=== PATIENT | female | born 1950 | race African-American/Black ===

== ENCOUNTER 2018-10-30 14:47 | Inpatient (IN) | payer MEDICARE, MEDICAID ==
[~2018-10-30] VITALS: Ht 160 cm; Wt 96.6 kg
[2018-10-30] MEDS ORDERED: SODIUM CHLORIDE 0.9% 500 ML IVB ONE (14:57)
[2018-10-30] MEDS ORDERED: ONDANSETRON HCL 4 MG/2 ML VIAL IV ONE (15:00)
[2018-10-30] MEDS ORDERED: MORPHINE SULFATE 4 MG/ML SYR/VIAL IV ONE (15:00)
[2018-10-30 16:09] LABS: Basophils # (auto) 0 uL; Basophils % (auto) 0.5 % (0.0-2.0); Eosinophils # (auto) 0.3 uL; Eosinophils % (auto) 3.1 % (0.0-7.0); Hemoglobin 12.7 g/dL (12.2-16.2); Lymphocytes # (auto) 4.7 uL; Mean Corpuscular Hemoglobin 28.4 pg (28.0-32.0); Mean Corpuscular Hgb Conc. 33.4 g/dL (32.0-36.0); Mean Corpuscular Volume 84.9 fL (80.0-100.0); Monocytes # (auto) 0.5 uL; Monocytes % (auto) 5.7 % (0.0-12.0); Neutrophils # (auto) 3.5 uL; Neutrophils % (auto) 38.7 % (37.0-80.0); Nucleated Red Blood Cells % 0.2 %; Platelet Count (auto) 191 10^3/uL (140-450); Red Blood Cells 4.48 10^6/uL (4.0-5.20); Red Cell Distribution Width 15.1 % (11.8-14.3); White Blood Cell 9.1 10^3/uL (4.4-10.8)
[2018-10-30 16:17] LABS: Calcium 8.9 mg/dL (8.5-10.1); Magnesium 2.6 mg/dL (1.6-2.6); Potassium 3.2 mmol/L (3.5-5.1)
[2018-10-30 16:24] LABS: Albumin 3.7 g/dL (3.4-5.0); BUN/Creatinine Ratio 8.3; Bilirubin, Total 0.4 mg/dL (0.2-1.0); Total Protein 8.3 g/dL (6.4-8.2)
[2018-10-31 03:53] LABS: Urine Bacteria FEW /hpf (None Seen); Urine Blood Negative /uL (Negative); Urine Hyaline Cast FEW /lpf (0 - 2); Urine Mucus FEW (None Seen); Urine Specific Gravity 1.025 (1.001-1.035); Urine WBC 1 /hpf (0 - 5)
[2018-10-31] MEDS ORDERED: ONDANSETRON HCL 4 MG/2 ML VIAL IV PRN (04:30)
[2018-10-31] MEDS ORDERED: ACETAMINOPHEN 500 MG TAB PO PRN (04:30)
[2018-10-31] MEDS ORDERED: POTASSIUM CHL 20 Meq TABLET PO ONE ×3 (04:30→17:00)
[2018-10-31 05:59] LABS: Basophils # (auto) 0.1 uL; Basophils % (auto) 0.9 % (0.0-2.0); Eosinophils # (auto) 0.3 uL; Eosinophils % (auto) 3.3 % (0.0-7.0); Hematocrit 36.1 % (36.0-46.0); Hemoglobin 11.7 g/dL (12.2-16.2); Lymphocytes # (auto) 4.6 uL; Lymphocytes % (auto) 48.7 % (10.0-50.0); Mean Corpuscular Hemoglobin 28.2 pg (28.0-32.0); Mean Corpuscular Hgb Conc. 32.5 g/dL (32.0-36.0); Mean Corpuscular Volume 86.9 fL (80.0-100.0); Monocytes # (auto) 0.5 uL; Monocytes % (auto) 5.7 % (0.0-12.0); Neutrophils # (auto) 3.9 uL; Neutrophils % (auto) 41.4 % (37.0-80.0); Nucleated Red Blood Cells % 0.2 %; Platelet Count (auto) 163 10^3/uL (140-450); Red Blood Cells 4.15 10^6/uL (4.0-5.20); Red Cell Distribution Width 15.2 % (11.8-14.3); White Blood Cell 9.4 10^3/uL (4.4-10.8)
[2018-10-31 06:05] LABS: Anion Gap 7 (5-15); BUN/Creatinine Ratio 9.7; Blood Urea Nitrogen 11 mg/dL (7-18); Calcium 7.8 mg/dL (8.5-10.1); Carbon Dioxide 26 mmol/L (21-32); Chloride 106 mmol/L (98-107); GFR African American 62 mL/min; GFR Non-African American 51 mL/min; Glucose 79 mg/dL (74-106); Potassium 3.1 mmol/L (3.5-5.1); Sodium 139 mmol/L (136-145)
[2018-10-31] MEDS ORDERED: PANTOPRAZOLE 40 MG/10 ML VIAL IV SCH (10:00)
[2018-10-31] MEDS: MORPHINE SULFATE 4 MG/ML SYR/VIAL IV PRN ×2 (10:25→20:07)
[2018-10-31] MEDS ORDERED: cefTRIAXone 1GM/50ML D5W 50 ML IV ONE (13:15)
[2018-10-31] MEDS ORDERED: cloNIDine HCL 0.1 MG TAB PO PRN (13:15)
[2018-10-31] MEDS ORDERED: LORazepam 2MG/ML-1ML VIAL IV PRN (13:15)
[2018-10-31] MEDS: metroNIDAZOLE 500MG/100ML 100 ML IV SCH ×2 (14:28→22:58)
[2018-10-31 19:47] VITALS: BP 155/79
--- NOTE | 2018-10-31 19:48 | NUR ---
MS admit from ER NIKKI HAMMONDS admitted to tele/MS . Patient oriented to Deysi Cazares RN primary RN, unit, room, bed, and unit policies regarding patient care and visiting hours. Patient weighed by bedscale and encouraged to call if they need something. All questions and concerns addressed, patient verbalized understanding. Note: Family at bedside
[2018-10-31 22:00] VITALS: BP 155/79
[2018-10-31] MEDS: PANTOPRAZOLE 40 MG/10 ML VIAL IV SCH (22:00)
[2018-11-01] VITALS (8 sets, daily range): BP systolic 149–189; BP diastolic 64–101
[2018-11-01] MEDS: MORPHINE SULFATE 4 MG/ML SYR/VIAL IV PRN ×2 (00:59→16:22)
[2018-11-01] MEDS: metroNIDAZOLE 500MG/100ML 100 ML IV SCH ×3 (05:41→23:03)
[2018-11-01 06:26] LABS: Basophils # (auto) 0 uL; Basophils % (auto) 0.6 % (0.0-2.0); Eosinophils # (auto) 0.3 uL; Eosinophils % (auto) 4.3 % (0.0-7.0); Hematocrit 35.5 % (36.0-46.0); Hemoglobin 11.5 g/dL (12.2-16.2); Lymphocytes # (auto) 3.5 uL; Lymphocytes % (auto) 46.5 % (10.0-50.0); Mean Corpuscular Hemoglobin 27.9 pg (28.0-32.0); Mean Corpuscular Hgb Conc. 32.4 g/dL (32.0-36.0); Mean Corpuscular Volume 86.1 fL (80.0-100.0); Monocytes # (auto) 0.5 uL; Monocytes % (auto) 6.1 % (0.0-12.0); Neutrophils # (auto) 3.2 uL; Neutrophils % (auto) 42.5 % (37.0-80.0); Nucleated Red Blood Cells % 0.1 %; Platelet Count (auto) 181 10^3/uL (140-450); Red Blood Cells 4.12 10^6/uL (4.0-5.20); Red Cell Distribution Width 15.4 % (11.8-14.3); White Blood Cell 7.6 10^3/uL (4.4-10.8)
[2018-11-01 06:51] LABS: Calcium 7.8 mg/dL (8.5-10.1); Potassium 4.1 mmol/L (3.5-5.1)
[2018-11-01 06:54] LABS: BUN/Creatinine Ratio 7.7
--- NOTE | 2018-11-01 07:50 | NUR ---
Opening Shift Note Assumed care of patient, awake and alert. No S/S of distress/SOB or pain. NPO prior stress test. Instructed on POC and to call for assist PRN, will continue to monitor for changes Q1hr and PRN.
[2018-11-01] MEDS ORDERED: ADENOSINE 80 MG in GIVE UN-DILUTED 0 ML IV STA (08:35)
--- NOTE | 2018-11-01 10:00 | NUR ---
PT OFF UNIT FOR STRESS TEST. NO ACUTE DISTRESS NOTED AT DEPARTURE.
[2018-11-01] MEDS: POTASSIUM CHL 20 Meq TABLET PO SCH (11:47)
[2018-11-01] MEDS: cefTRIAXone 1GM/50ML D5W 50 ML IV SCH (11:47)
[2018-11-01] MEDS: HYDROcodone-ACET 5/325MG TAB PO PRN (12:00)
--- NOTE | 2018-11-01 12:00 | NUR ---
PT BACK FROM STRESS TEST, REPORTED DOES NOT WANT ANY MORE TEST OR PROCEDURE FOR TODAY. DR. CARL AND DRUM BARKER OPERATOR RIMA WATERS NOTIFIED. BOTH MDs STATED OK FOR PT TO EAT AT THIS TIME.
[2018-11-01] MEDS ORDERED: LEVOTHYROXINE SODIUM 100 MCG TAB PO ONE (12:15)
--- NOTE | 2018-11-01 12:18 | NUR ---
DR. GONGORA AT BEDSIDE. NEW ORDERS NPO AFTER MIDNIGHT AND CONSENT FOR EGD. WILL CARRY OUT ORDER. Signed: 11/01/18 at 1219 by Mohsen Ding RN RN
[2018-11-01] MEDS: PANTOPRAZOLE 40 MG/10 ML VIAL IV SCH ×2 (12:40→23:03)
[2018-11-01] MEDS ORDERED: cloNIDine HCL 0.1 MG TAB PO PRN (15:00)
--- NOTE | 2018-11-01 15:05 | NUR ---
RECEIVED PHONE CALL FROM DR. MILLS CLONIDINE 0.1MG PO PRN Q2H FOR SYS B/P GREATER THAN 160. ORDER READ BACK AND VERIFIED WILL CARRY OUT ORDER.
--- NOTE | 2018-11-01 19:30 | NUR ---
OPENING NOTES REPORT RECEIVED FROM DAY SHIFT RN. PT IS ALERT AND ORIENTATED X 4 WITH NO S/S OF DISTRESS NOR PAIN. BED IS IN LOWEST POSITION WITH SIDE RAILS UP X 2. BED BRAKES ARE LOCKED AND IN LOWEST POSITION. HOB IS 30 DEGREES. DISCUSSED POC WITH PT, PT VERBALIZED UNDERSTANDING. WILL MONITOR Q 1HR.
--- NOTE | 2018-11-01 19:54 | NUR ---
CARE ENDORSED TO ALEX LO.
[2018-11-02] VITALS (7 sets, daily range): BP systolic 125–155; BP diastolic 67–96
[2018-11-02] MEDS: metroNIDAZOLE 500MG/100ML 100 ML IV SCH (05:52)
[2018-11-02] MEDS: MORPHINE SULFATE 4 MG/ML SYR/VIAL IV PRN ×2 (06:03→15:49)
[2018-11-02] MEDS: LEVOTHYROXINE SODIUM 100 MCG TAB PO SCH (07:00)
--- NOTE | 2018-11-02 07:27 | NUR ---
CLOSING NOTES ENDORSED CARE TO DAY SHIFT RN
[2018-11-02 07:39] LABS: Basophils # (auto) 0.1 uL; Basophils % (auto) 0.7 % (0.0-2.0); Eosinophils # (auto) 0.3 uL; Eosinophils % (auto) 3.6 % (0.0-7.0); Hematocrit 36.2 % (36.0-46.0); Lymphocytes # (auto) 2.9 uL; Lymphocytes % (auto) 39.8 % (10.0-50.0); Mean Corpuscular Hemoglobin 28.6 pg (28.0-32.0); Mean Corpuscular Hgb Conc. 33.2 g/dL (32.0-36.0); Mean Corpuscular Volume 86.2 fL (80.0-100.0); Monocytes # (auto) 0.5 uL; Monocytes % (auto) 6.1 % (0.0-12.0); Neutrophils # (auto) 3.7 uL; Neutrophils % (auto) 49.8 % (37.0-80.0); Nucleated Red Blood Cells % 0.3 %; Platelet Count (auto) 183 10^3/uL (140-450); Red Cell Distribution Width 15.1 % (11.8-14.3); White Blood Cell 7.4 10^3/uL (4.4-10.8)
[2018-11-02 07:50] LABS: BUN/Creatinine Ratio 7.8; Potassium 3.7 mmol/L (3.5-5.1)
[2018-11-02 07:52] LABS: INR 1.03 (0.9-1.15); Partial Thromboplastin Time 31.3 sec (23.78-33.04)
--- NOTE | 2018-11-02 08:41 | NUR ---
PT OFF UNIT TO PREOP FOR EGD VIA BED. NO S/S OF ACUTE DISTRESS NOTED AT DEPARTURE. VS:98.0, 71, 19, 97%, 146/96,0/10.
[2018-11-02] MEDS ORDERED: NALOXONE HCL 0.4 MG/ML VIAL ONE (09:00)
[2018-11-02] MEDS ORDERED: FLUMAZENIL 0.1 MG/ML INJ 10ML MDV IV ONE (09:00)
[2018-11-02] MEDS ORDERED: LIDOCAINE VISCOUS 2% 15ML UD ONE (09:01)
[2018-11-02] MEDS ORDERED: HYDROmorphone HCL 2 MG/ML VL ONE (09:02)
[2018-11-02] MEDS ORDERED: diphenhdrAMINE HCL 50 MG/1 ML VL ONE (09:02)
[2018-11-02] MEDS ORDERED: SODIUM CHLORIDE LOCK 10 ML ONE (09:02)
[2018-11-02] MEDS: fentaNYL CITRATE 100 MCG/2 ML VL ONE ×2 (09:25→09:28)
[2018-11-02] MEDS: MIDAZOLAM HCL 5 MG/ML-1ML VIAL ONE ×2 (09:25→09:28)
--- NOTE | 2018-11-02 10:55 | NUR ---
PT BACK TO ROOM, S/P EGD PT DROWSY BUT AROUSABLE, DENIED OF ANY DISCOMFORT AT THIS TIME. VS: 98.1, 63, 19, 95%, 143/67. WILL CONTINUE CARE.
[2018-11-02] MEDS: POTASSIUM CHL 20 Meq TABLET PO SCH (12:10)
[2018-11-02] MEDS: cefTRIAXone 1GM/50ML D5W 50 ML IV SCH (12:10)
[2018-11-02] MEDS: PANTOPRAZOLE 40 MG TAB PO SCH ×2 (12:10→22:19)
[2018-11-02] MEDS ORDERED: amLODIPine BESYLATE 5 MG TAB PO ONE (13:15)
[2018-11-02] MEDS ORDERED: LISINOPRIL 20 MG TAB PO ONE (13:15)
--- NOTE | 2018-11-02 19:35 | NUR ---
CARE ENDORSED TO RONALDO LO.
--- NOTE | 2018-11-02 19:40 | NUR ---
OPENING NOTES REPORT RECEIVED FROM DAY SHIFT RN. PT IS ALERT AND ORIENTATED X 4 WITH NO S/S OF DISTRESS BUT 6/10 PAIN. BED IS IN LOWEST POSITION WITH SIDE RAILS UP X 2. BED BRAKES ARE LOCKED AND IN LOWEST POSITION. HOB IS 30 DEGREES. DISCUSSED POC WITH PT, PT VERBALIZED UNDERSTANDING. WILL MONITOR Q 1HR.
[2018-11-02] MEDS: HYDROcodone-ACET 5/325MG TAB PO PRN (22:19)
[2018-11-03] MEDS: MORPHINE SULFATE 4 MG/ML SYR/VIAL IV PRN (00:17)
[2018-11-03 05:33] VITALS: BP 132/69
[2018-11-03] MEDS: LEVOTHYROXINE SODIUM 100 MCG TAB PO SCH (06:53)
[2018-11-03 06:54] LABS: Calcium 8.2 mg/dL (8.5-10.1); Potassium 3.6 mmol/L (3.5-5.1)
[2018-11-03 07:06] LABS: BUN/Creatinine Ratio 7.3
[2018-11-03 08:00] VITALS: BP 148/71
[2018-11-03 08:22] VITALS: BP 148/71
[2018-11-03] MEDS: HYDROcodone-ACET 5/325MG TAB PO PRN (09:47)
[2018-11-03] MEDS: amLODIPine BESYLATE 5 MG TAB PO SCH (09:47)
[2018-11-03] MEDS: LISINOPRIL 20 MG TAB PO SCH (09:48)
[2018-11-03] MEDS: PANTOPRAZOLE 40 MG TAB PO SCH ×2 (09:49→21:28)
[2018-11-03] MEDS: ENOXAPARIN SOD 30 MG/0.3 ML SYRINGE SC SCH (09:49)
--- NOTE | 2018-11-03 11:26 | NUR ---
PT TO WALK WITH PT.
[2018-11-03 12:22] VITALS: BP 155/88
--- NOTE | 2018-11-03 14:10 | NUR ---
DR. ELDRIDGE AT BEDSIDE.
--- NOTE | 2018-11-03 14:29 | NUR ---
NUTRITION ASSESSMENT NOTES Please refer to link notes of nutrition screen form filed under the intervention section of the plan of care for further details. Est. Needs: 1450 kcal to 1950 kcal (15-20 kcal/kgBW), 52 gms to 62 gms pro (1.0-1.2 gms/kgIBW: 52 kg). Will continue to monitor pertinent labs and reassess nutrient need prn Thank you. Addendum: 11/03/18 at [address] Amended: Links added.
[2018-11-03 16:19] VITALS: BP 156/81
--- NOTE | 2018-11-03 19:25 | NUR ---
CARE ENDORSED TO ARMANDO LO
--- NOTE | 2018-11-03 19:46 | NUR ---
ASSUMED CARE, PT. AWAKE, NO C/O PAIN, NO SOB.
[2018-11-03 21:30] VITALS: BP 151/71
--- NOTE | 2018-11-03 23:50 | NUR ---
IV INFILTRATED, PT. REFUSED TO INSERT IV AT THIS TIME.
[2018-11-04 04:30] VITALS: BP 110/52
--- NOTE | 2018-11-04 04:52 | NUR ---
pt. still refusing to put an iv.
[2018-11-04] MEDS: LEVOTHYROXINE SODIUM 100 MCG TAB PO SCH (06:03)
[2018-11-04 06:15] LABS: Basophils # (auto) 0.1 uL; Eosinophils # (auto) 0.3 uL; Eosinophils % (auto) 3.2 % (0.0-7.0); Hematocrit 38.3 % (36.0-46.0); Hemoglobin 12.6 g/dL (12.2-16.2); Lymphocytes % (auto) 35.4 % (10.0-50.0); Mean Corpuscular Hemoglobin 28.3 pg (28.0-32.0); Mean Corpuscular Volume 85.7 fL (80.0-100.0); Monocytes # (auto) 0.6 uL; Monocytes % (auto) 6.9 % (0.0-12.0); Neutrophils # (auto) 4.5 uL; Neutrophils % (auto) 53.5 % (37.0-80.0); Nucleated Red Blood Cells % 0.1 %; Platelet Count (auto) 211 10^3/uL (140-450); Red Blood Cells 4.47 10^6/uL (4.0-5.20); Red Cell Distribution Width 15.2 % (11.8-14.3); White Blood Cell 8.3 10^3/uL (4.4-10.8)
[2018-11-04 06:31] LABS: Albumin 3.6 g/dL (3.4-5.0); Calcium 8.7 mg/dL (8.5-10.1); Magnesium 2.5 mg/dL (1.6-2.6); Potassium 3.4 mmol/L (3.5-5.1)
[2018-11-04 06:35] LABS: BUN/Creatinine Ratio 7.7; Bilirubin, Total 0.5 mg/dL (0.2-1.0)
--- NOTE | 2018-11-04 07:50 | NUR ---
Opening Shift Note Assumed care of patient, AAOX4, breathing even unlabored, S1, S2. Patient refused to have a new IV at this time. Abd soft nontender, denied of blood in stools. No S/S of distress/SOB or pain. Instructed on POC and to call for assist PRN, bed locked in the lowest position, call light within easy reach, will continue to monitor for changes Q1hr and PRN.
[2018-11-04 08:00] VITALS: BP 148/63
[2018-11-04 09:12] VITALS: BP 148/63
[2018-11-04] MEDS: amLODIPine BESYLATE 5 MG TAB PO SCH (09:20)
[2018-11-04] MEDS: LISINOPRIL 20 MG TAB PO SCH (09:20)
[2018-11-04] MEDS: PANTOPRAZOLE 40 MG TAB PO SCH (09:20)
[2018-11-04] MEDS: ENOXAPARIN SOD 30 MG/0.3 ML SYRINGE SC SCH (09:21)
--- NOTE | 2018-11-04 11:00 | NUR ---
DR. BAEZ AT BEDSIDE.
[2018-11-04 12:30] VITALS: BP 137/69
[2018-11-04 13:09] VITALS: BP 148/67
[2018-11-04 17:07] VITALS: BP 139/76
--- NOTE | 2018-11-04 17:40 | NUR ---
Discharge instructions given as ordered. Encourage to follow up with [facility] DR. ELDRIDGE on 11/20/18 @ 2:30pm as instructed and F/U with GI Dr. Chatman with in 1-2 week for biopsy result. All questions and concerns addressed. Patient verbalized understanding. Medication reconciliation form completed and copy given to patient. IV removed with catheter intact, pressure dressing applied. Telemetry unit returned to [facility]. Patient taken to vehicle via wheelchair with all personal belongings, accompanied by staff and family member. No distress noted at time of departure.
== END 2018-11-04 17:29 | disposition home or self-care (01) | DRG 241 ==
LOC: ER 14:47 → OVERFLOW 10-31 04:38 → EAST 10-31 19:53 → TELE-EAST 11-01 03:58
PROVIDERS: ADMIT Nurse Practitioner Family; ATTEND Internal Medicine
PROC: 0DB68ZX Excision of Stomach, Via Natural or Artificial Opening Endoscopic, Diagnostic (ICD-10-PCS; principal; 2018-11-02 09:19)
DX: K29.71 Gastritis, unspecified, with bleeding (principal); N17.0 Acute kidney failure with tubular necrosis; N18.3 Chronic kidney disease, stage 3 (moderate); E03.9 Hypothyroidism, unspecified; E87.6 Hypokalemia; I12.9 Hypertensive chronic kidney disease with stage 1 through stage 4 chronic kidney disease, or unspecified chronic kidney disease; E66.9 Obesity, unspecified; M79.7 Fibromyalgia; N39.0 Urinary tract infection, site not specified; K57.30 Diverticulosis of large intestine without perforation or abscess without bleeding; F17.210 Nicotine dependence, cigarettes, uncomplicated; G40.909 Epilepsy, unspecified, not intractable, without status epilepticus; I70.8 Atherosclerosis of other arteries; K59.00 Constipation, unspecified; M54.9 Dorsalgia, unspecified; K76.89 Other specified diseases of liver; M06.9 Rheumatoid arthritis, unspecified; M10.9 Gout, unspecified; Z90.49 Acquired absence of other specified parts of digestive tract; Z90.710 Acquired absence of both cervix and uterus; Z91.14 Patient's other noncompliance with medication regimen; Z91.19 Patient's noncompliance with other medical treatment and regimen; Z98.51 Tubal ligation status; Z68.37 Body mass index [BMI] 37.0-37.9, adult; Z88.6 Allergy status to analgesic agent
CPT/HCPCS: 36415; 71045; 74176; 76775; 78452; 80048; 80053; 80061; 81001; 82150; 83036; 83690; 83735; 84436; 84439; 84443; 84481; 84484; 84550; 85025; 85610; 85730; 87086; 93017; 94761; 96361; 96374; 96375; 96376; A6257; C9113; G0378; J0153; J0696; J2250; J2405; J3490

== ENCOUNTER 2018-11-25 16:38 | Inpatient (IN) | payer MEDICARE, MEDICAID | END 2018-12-01 20:05 | disposition home or self-care (01) | LOC: TELE-WESTW 11-28 16:16 → ER 16:38 → TELE-WESTW 21:20 | PROC: B2111ZZ Fluoroscopy of Multiple Coronary Arteries using Low Osmolar Contrast (ICD-10-PCS; principal; ~2018-11-25) | PROC: 4A023N7 Measurement of Cardiac Sampling and Pressure, Left Heart, Percutaneous Approach (ICD-10-PCS; ~2018-11-25) | PROC: B2151ZZ Fluoroscopy of Left Heart using Low Osmolar Contrast (ICD-10-PCS; ~2018-11-25) | DX: I25.10 Atherosclerotic heart disease of native coronary artery without angina pectoris (principal); E44.0 Moderate protein-calorie malnutrition; E11.22 Type 2 diabetes mellitus with diabetic chronic kidney disease; R55 Syncope and collapse; E87.6 Hypokalemia; N39.0 Urinary tract infection, site not specified; I12.9 Hypertensive chronic kidney disease with stage 1 through stage 4 chronic kidney disease, or unspecified chronic kidney disease; N18.9 Chronic kidney disease, unspecified; E03.9 Hypothyroidism, unspecified; Z79.82 Long term (current) use of aspirin; M94.0 Chondrocostal junction syndrome [Tietze] ==

== ENCOUNTER 2021-08-01 18:01 | Emergency (ER) | payer MEDICARE, OTHER ==
[~2021-08-01] VITALS: Ht 160 cm; Wt 90.7 kg
[~2021-08-01 18:01] MED LIST: AMLO-496; LEVO100T8 PO; LISI20TA28; PANT40T
[2021-08-01] MEDS ORDERED: ACETAMINOPHEN 500 MG TAB PO ONE (20:45)
[2021-08-01 23:40] VITALS: BP 129/52
== END 2021-08-01 23:55 | disposition home or self-care (01) ==
LOC: EDBD 18:01 → ER 18:08
DX: R56.9 Unspecified convulsions (principal); E11.9 Type 2 diabetes mellitus without complications; F17.210 Nicotine dependence, cigarettes, uncomplicated; I10 Essential (primary) hypertension; F12.10 Cannabis abuse, uncomplicated; Z90.49 Acquired absence of other specified parts of digestive tract; Z98.51 Tubal ligation status
CPT/HCPCS: 70450; 71045; 93005

== ENCOUNTER 2022-07-07 10:58 | Emergency (ER) | payer MEDICARE, OTHER ==
[~2022-07-07] VITALS: Ht 157.5 cm; Wt 77.0 kg
[2022-07-07 11:30] VITALS: BP 122/62
[2022-07-07 13:13] LABS: Urine Bacteria FEW /hpf (None Seen); Urine Blood TRACE /uL (Negative); Urine Hyaline Cast MOD /lpf (0 - 2); Urine Mucus FEW (None Seen); Urine Specific Gravity 1.024 (1.001-1.035); Urine WBC 4 /hpf (0 - 5)
[2022-07-07 13:48] LABS: Basophils # (auto) 0 10 ^3/uL (0-0.2); Basophils % (auto) 0.7 % (0.0-2.0); Eosinophils # (auto) 0 10 ^3/uL (0-0.8); Hematocrit 44.4 % (36.0-46.0); Hemoglobin 14.4 g/dL (12.2-16.2); Lymphocytes % (auto) 44.8 % (10.0-50.0); Mean Corpuscular Hemoglobin 27.1 pg (28.0-32.0); Mean Corpuscular Hgb Conc. 32.5 g/dL (32.0-36.0); Mean Corpuscular Volume 83.5 fL (80.0-100.0); Monocytes # (auto) 0.6 10 ^3/uL (0-1.3); Monocytes % (auto) 13.2 % (0.0-12.0); Neutrophils # (auto) 1.9 10 ^3/uL (1.6-8.6); Neutrophils % (auto) 41.3 % (37.0-80.0); Nucleated Red Blood Cells % 0.4 %; Red Blood Cells 5.32 10^6/uL (4.0-5.20); Red Cell Distribution Width 15.7 % (11.8-14.3); White Blood Cell 4.5 10^3/uL (4.4-10.8)
[2022-07-07 14:28] LABS: Albumin 3.8 g/dL (3.4-5.0); BUN/Creatinine Ratio 14.2; Bilirubin, Total 0.7 mg/dL (0.2-1.0); Calcium 8.7 mg/dL (8.5-10.1); Potassium 3.5 mmol/L (3.5-5.1); Total Protein 7.9 g/dL (6.4-8.2)
[2022-07-07] MEDS ORDERED: OSEL75CA5 PO (14:59)
== END 2022-07-07 16:22 | disposition home or self-care (01) ==
LOC: ER 10:58
DX: J10.1 Influenza due to other identified influenza virus with other respiratory manifestations (principal); R07.89 Other chest pain; I10 Essential (primary) hypertension; E11.9 Type 2 diabetes mellitus without complications; E03.9 Hypothyroidism, unspecified; M10.9 Gout, unspecified; F17.210 Nicotine dependence, cigarettes, uncomplicated; Z90.49 Acquired absence of other specified parts of digestive tract; Z90.710 Acquired absence of both cervix and uterus; Z79.899 Other long term (current) drug therapy; Z88.6 Allergy status to analgesic agent; Z20.822 Contact with and (suspected) exposure to COVID-19
CPT/HCPCS: 36415; 71046; 80053; 81001; 83880; 84484; 85025; 87426; 87804; 93005

== ENCOUNTER 2023-06-18 17:48 | Emergency (ER) | payer MEDICARE, OTHER ==
[~2023-06-18] VITALS: Ht 165.1 cm; Wt 90.0 kg
[~2023-06-18 17:48] MED LIST changes: -AMLO-496; +AMLO1TAB23; -LISI20TA28; +LISI20TA56; +OSEL75CA5 PO
[2023-06-18] MEDS ORDERED: levETIRAcetam 1000 mg/100ml 100 ML IV ONE (18:15)
[2023-06-18 19:01] LABS: Basophils # (auto) 0 10 ^3/uL (0-0.2); Basophils % (auto) 0.2 % (0.0-2.0); Eosinophils # (auto) 0 10 ^3/uL (0-0.8); Hematocrit 41.5 % (36.0-46.0); Hemoglobin 13.2 g/dL (12.2-16.2); Lymphocytes # (auto) 1.8 10 ^3/uL (0.4-5.4); Lymphocytes % (auto) 15.8 % (10.0-50.0); Mean Corpuscular Hemoglobin 27.6 pg (28.0-32.0); Mean Corpuscular Hgb Conc. 31.8 g/dL (32.0-36.0); Mean Corpuscular Volume 86.9 fL (80.0-100.0); Monocytes # (auto) 0.5 10 ^3/uL (0-1.3); Monocytes % (auto) 4.2 % (0.0-12.0); Neutrophils # (auto) 8.9 10 ^3/uL (1.6-8.6); Neutrophils % (auto) 79.8 % (37.0-80.0); Nucleated Red Blood Cells % 0.1 %; Red Blood Cells 4.78 10^6/uL (4.0-5.20); Red Cell Distribution Width 16.3 % (11.8-14.3); White Blood Cell 11.2 10^3/uL (4.4-10.8)
[2023-06-18 19:05] VITALS: PULSE 80; RESP 16; TEMP 98.5; O2SAT 98
[2023-06-18 19:17] LABS: Albumin 4.5 g/dL (3.2-4.8); Alkaline Phosphatase 84 U/L (46-116); Anion Gap 16 (5-15); Aspartate Aminotransferase 10 U/L (13-40); Bilirubin, Total 0.5 mg/dL (0.2-1.0); Blood Urea Nitrogen 8 mg/dL (9-23); Calcium 9.2 mg/dL (8.7-10.4); Carbon Dioxide 23 mmol/L (20-30); Chloride 99 mmol/L (98-107); Glucose 158 mg/dL (74-106); Magnesium 2.2 mg/dL (1.6-2.6); Sodium 138 mmol/L (136-145); Total Protein 7.4 g/dL (5.7-8.2)
[2023-06-18 19:48] LABS: Alanine Aminotransferase < 9 U/L (7-40)
[2023-06-18 19:51] LABS: Potassium 2.8 mmol/L (3.5-5.1)
[2023-06-18] MEDS ORDERED: LEVE500T40 PO (20:44)
[2023-06-18] MEDS ORDERED: POTASSIUM EFFERVESENT TAB 25 MEQ PO ONE (20:45)
[2023-06-18 21:42] VITALS: BP 145/61; PULSE 80; RESP 18; O2SAT 96
[2023-06-18] MEDS ORDERED: KETOROLAC TROMETH 30 MG/ML 1ML VIAL IM ONE (22:00)
== END 2023-06-18 22:40 | disposition home or self-care (01) ==
LOC: EDBD 17:48 → ER 17:48
DX: G40.909 Epilepsy, unspecified, not intractable, without status epilepticus (principal); E87.6 Hypokalemia; I10 Essential (primary) hypertension; E11.9 Type 2 diabetes mellitus without complications; M10.9 Gout, unspecified; F17.210 Nicotine dependence, cigarettes, uncomplicated; Z98.890 Other specified postprocedural states
CPT/HCPCS: 36415; 80053; 83735; 85025; 96372; 96374; 99284; J1885; J1953

== ENCOUNTER → 2024-06-08 | Outpatient (CLI) | payer MEDICARE, OTHER ==
[~2024-06-08] MED LIST changes: +LEVE500T40 PO
[2024-06-08 11:08] LABS: Basophils # (auto) 0.2 10 ^3/uL (0-0.2); Basophils % (auto) 2.3 % (0.0-2.0); Eosinophils # (auto) 0.1 10 ^3/uL (0-0.8); Eosinophils % (auto) 1.3 % (0.0-7.0); Hematocrit 38.1 % (36.0-46.0); Hemoglobin 12.7 g/dL (12.2-16.2); Lymphocytes # (auto) 4.5 10 ^3/uL (0.4-5.4); Lymphocytes % (auto) 47.3 % (10.0-50.0); Mean Corpuscular Hemoglobin 28.2 pg (28.0-32.0); Mean Corpuscular Hgb Conc. 33.3 g/dL (32.0-36.0); Mean Corpuscular Volume 84.7 fL (80.0-100.0); Monocytes # (auto) 0.6 10 ^3/uL (0-1.3); Monocytes % (auto) 6.3 % (0.0-12.0); Neutrophils # (auto) 4.1 10 ^3/uL (1.6-8.6); Neutrophils % (auto) 42.8 % (37.0-80.0); Nucleated Red Blood Cells % 0.2 %; Platelet Count (auto) 309 10^3/uL (140-450); Red Blood Cells 4.49 10^6/uL (4.0-5.20); Red Cell Distribution Width 15.7 % (11.8-14.3); White Blood Cell 9.6 10^3/uL (4.4-10.8)
[2024-06-08 11:19] LABS: INR 1.02 (0.9-1.15); Partial Thromboplastin Time 27.6 SEC (24.5-34.5); Prothrombin Time 10.8 sec (9.3-11.8)
[2024-06-08 11:20] LABS: Albumin 4.5 g/dL (3.2-4.8); Alkaline Phosphatase 59 U/L (46-116); Anion Gap 5 (5-15); Aspartate Aminotransferase 10 U/L (13-40); Bilirubin, Total 0.7 mg/dL (0.2-1.0); Blood Urea Nitrogen 18 mg/dL (9-23); Calcium 9.7 mg/dL (8.7-10.4); Carbon Dioxide 27 mmol/L (20-31); Chloride 107 mmol/L (98-107); Glucose 92 mg/dL (74-106); Potassium 4.3 mmol/L (3.5-5.1); Sodium 139 mmol/L (136-145); Total Protein 7.1 g/dL (5.7-8.2)
[2024-06-08 11:24] LABS: Alanine Aminotransferase < 9 U/L (7-40)
[2024-06-08 11:25] LABS: Urine Bacteria MOD /hpf (None Seen); Urine Blood Negative /uL (Negative); Urine Clarity Clear (Clear); Urine Color Light-Yellow (Yellow); Urine Protein, UAD Negative (Negative); Urine Specific Gravity 1.026 (1.001-1.035); Urine Urobilinogen Normal (Negative); Urine WBC 4 /hpf (0 - 5); Urine pH 5.5 (5.0-9.0)
== END | disposition home or self-care (01) ==
LOC: LAB 10:36
PROVIDERS: ATTEND Nurse Practitioner
DX: Z01.812 Encounter for preprocedural laboratory examination (principal); Z79.899 Other long term (current) drug therapy; Z87.891 Personal history of nicotine dependence; R06.02 Shortness of breath; Z86.2 Personal history of diseases of the blood and blood-forming organs and certain disorders involving the immune mechanism
CPT/HCPCS: 36415; 80053; 81001; 85025; 85610; 85730; 87086